=== PATIENT | female | born 1935 ===

== ENCOUNTER 2017-10-09 08:25 | Emergency (ER) | payer MEDICARE ==
[2017-10-09 08:35] VITALS: RESP 20; O2SAT 96; BMI 27.8
--- NOTE | 2017-10-09 08:58 | C.PDOC ---
History Of Present Illness REFERRED DR Bhavana KC. WORSENING URINARY INCONT X SEV YEARS. OCC BURNING AND SKIN IRRITATION. NO ABD PAIN, FEVER NV. "HE TOLD ME TO COME HERE BC HIS OFFICE HAS NO WHEELCHAIR ACCESS" EXAM NAD ABD NEG EXT R AKA REMAINDER NEG Time Seen by Provider: 10/09/17 08:47 Chief Complaint (Nursing): Female Genitourinary History Per: Patient History/Exam Limitations: no limitations Onset/Duration Of Symptoms: Days Current Symptoms Are (Timing): Still Present Severity: Moderate Past Medical History Reviewed: Historical Data, Nursing Documentation, Vital Signs Vital Signs: Last Vital Signs Temp 98.6 F 10/09/17 08:31 Pulse 60 10/09/17 08:31 Resp 20 10/09/17 08:31 BP 156/67 H 10/09/17 08:31 Pulse Ox 96 10/09/17 10:00 - Medical History PMH: Asthma, HTN, Hypercholesterolemia Surgical History: Coronary Stent Family History: States: No Known Family Hx - Social History Hx Alcohol Use: No Hx Substance Use: No - Immunization History Hx Tetanus Toxoid Vaccination: No Hx Influenza Vaccination: Yes Hx Pneumococcal Vaccination: No Review Of Systems Except As Marked, All Systems Reviewed And Found Negative. Constitutional: Negative for: Fever, Chills Gastrointestinal: Negative for: Nausea, Vomiting, Abdominal Pain Genitourinary: Positive for: Incontinence Physical Exam - Physical Exam Appears: No Acute Distress Skin: Normal Color, Warm, Dry Head: Atraumatic, Normacephalic Eye(s): bilateral: Normal Inspection Cardiovascular: Rhythm Regular Respiratory: Normal Breath Sounds, No Rales, No Rhonchi, No Wheezing Gastrointestinal/Abdominal: Normal Exam, Soft, No Tenderness, No Guarding, No Rebound Extremity: Other (right AKA) Neurological/Psych: Oriented x3, Normal Speech ED Course And Treatment O2 Sat by Pulse Oximetry: 96 (RA) Pulse Ox Interpretation: Normal Progress - Re-Evaluation Re-evaluation Note: 10/09/17 09:22 D/W DR Bhavana KC. UA PENDING. WILL EVAL IN ER 10/09/17 10:41 SP LINO KC, CLEARED FOR DC. MACROBID, MYRBETRIQ 50 MG QD FU OFFICE. - Data Reviewed Data Reviewed: Lab Medical Decision Making Medical Decision Making: Plan: -- UA -- Urine Culture Disposition Counseled Patient/Family Regarding: Studies Performed, Diagnosis, Need For Followup, Rx Given - Disposition Referrals: Octavia Kc MD [Staff Provider] - Disposition: HOME/ ROUTINE Disposition Time: 10:12 Condition: IMPROVED Additional Instructions: FOLLOW UP DR Bhavana KC FOR FURTHER BLADDER SYMPTOM MANAGEMENT. Prescriptions: Mirabegron [Myrbetriq] 50 mg PO DAILY #14 ter Nitrofurantoin Macrocrystals [Macrobid] 1 cap PO BID #14 cap Instructions: Urinary Tract Infection, Adult (DC), Bladder Spasms (DC) Forms: [employer] (N[place]ien) - Clinical Impression Clinical Impression: UTI (urinary tract infection), Bladder incontinence - Scribe Statement The provider has reviewed the documentation as recorded by the Scribe Karl Ahumada Provider Attestation: All medical record entries made by the Scribe were at my direction and personally dictated by me. I have reviewed the chart and agree that the record accurately reflects my personal performance of the history, physical exam, medical decision making, and the department course for this patient. I have also personally directed, reviewed, and agree with the discharge instructions and disposition.
[2017-10-09 09:35] LABS: SQUAMOUS EPITHIAL 3 /hpf (0-5); URINE BACTERIA OCC (<OCC); URINE BILIRUBIN NEGATIVE (NEGATIVE); URINE BLOOD NEGATIVE (NEGATIVE); URINE CLARITY Hazy (Clear); URINE COLOR Yellow (YELLOW); URINE GLUCOSE (UA) NORMAL (Normal); URINE LEUKOCYTE ESTERASE 3+ Leu/uL (Negative); URINE PROTEIN 2+ mg/dL (NEGATIVE); URINE UROBILINOGEN NORMAL mg/dL (0.2-1.0); WBC CLUMPS MOD /hpf
[2017-10-09] MEDS ORDERED: Albuterol-Ipratrop 3 mg / 0.5 (3 ml) UD ONE (10:42)
[2017-10-09 11:13] VITALS: BP 170/70; PULSE 55; TEMP 97.8
--- NOTE | 2017-10-10 21:58 | CON ---
DATE: 10/09/2017 Urology consultation is requested by ER physician, Dr. Delarosa, and by Dr. Jacqui Fitzgerald. Urology consultation filled by Dr. Octavia Kc. REASON FOR CONSULTATION: Urinary incontinence. The patient is an 82-year-old female with urinary incontinence. The patient is otherwise in fair health. The patient has a history of coronary artery disease and peripheral vascular disease. The patient has previous right lower extremity amputation. The patient has previous coronary artery bypass graft. The patient has a history of previous angioplasty with stent insertion. The patient has had urinary difficulties for the past approximately a year. The patient has had urinary frequency. The patient has had urgency. She has had urgency incontinence. The patient has had nocturia x5. The patient reports no hematuria. Occasional dysuria. The patient has daytime frequency as well. There is no recent fever or rigors. The patient is uncertain regarding history of previous urinary tract infection. There is no history of urolithiasis. No flank pain. No abdominal pain. The patient's medications include Compazine, Zofran, gabapentin, valsartan, Dexilant, Plavix, Synthroid, Crestor, metformin, Ranexa, and insulin. The patient has a history of insulin-dependent diabetes mellitus as well. The patient lives with her child. The patient is able to get out of bed and get in a wheelchair. The patient is able to use the bathroom for her bowel movements. PHYSICAL EXAMINATION: GENERAL: The patient is a well-developed, well-nourished elderly female. The patient is awake and alert. ABDOMEN: Soft, nontender, nondistended. No mass or organomegaly. BACK: No CVA tenderness. IMPRESSION: Voiding dysfunction. Possible overactive bladder. Urinalysis reveals pyuria. Possible urinary tract infection. The patient has significant other history including insulin dependent diabetes mellitus, peripheral vascular disease, and coronary artery disease. PLAN/RECOMMENDATIONS: Urine culture. Empiric therapy for overactive bladder as well as for urinary tract infection. I would recommend one be course of antibiotic empirically, Levaquin. I would also recommend Myrbetriq 50 mg per day. therapy to follow according to the patient's clinical course. Possible need for cystoscopy, cystogram, and cystometrogram. Possible urodynamic studies. I discussed the findings with the patient, with her son, as well as with the ER staff. Octavia MD De cc: Jacqui Fitzgerald MD
== END 2017-10-09 10:35 | disposition home or self-care (01) ==
LOC: C.ER 08:25
DX: R32 Unspecified urinary incontinence (principal); N39.0 Urinary tract infection, site not specified